=== PATIENT | female | born 2005 | race Asian ===

== ENCOUNTER 2024-07-26 06:31 | Outpatient (REF) | payer OTHER, SELFPAY ==
--- NOTE | ~2024-07-26 | US_ITS ---
EXAMINATION: US PELVIS TRANSABDOMINAL AND TRANSVAGINAL HISTORY: IRREGULAR BLEEDING COMPARISON: There are no prior studies for comparison. TECHNIQUE: Transabdominal real-time 2D [place]-scale ultrasound was performed. The patient declined endovaginal examination. FINDINGS: Uterus: The uterus is normal in size, measuring 6.2 x 3.1 x 3.8 cm. Myometrium has a normal echotexture. No fibroids are identified. Endometrium: The endometrial stripe measures 5 mm in thickness. Right ovary: The right ovary measures 3.2 x 2.3 x 2.4 cm. The right ovary is normal in size and echotexture. Left ovary: The left ovary measures 3.3 x 1.9 x 2.8 cm. The left ovary is normal in size and echotexture. Pelvic fluid: There is a small amount of free fluid in the cul-de-sac. US/US pelvic and transvaginal IMPRESSION: Small amount of free fluid in the cul-de-sac. Otherwise unremarkable pelvic ultrasound. Electronically signed by: Erick Prasad MD 07/27/2024 07:04 AM EDT
== END 2024-07-26 06:32 | disposition home or self-care (01) ==
LOC: HO.UMASIMG 06:31
PROVIDERS: Visit Provider Nurse Practitioner Women's Health
DX: N92.6 Irregular menstruation, unspecified (principal)
CPT/HCPCS: 76830; 76856

== ENCOUNTER → 2024-07-26 15:30 | Outpatient (BNV) | payer OTHER, SELFPAY | PROVIDERS: Visit Provider Radiology Diagnostic Radiology | DX: N92.5 Other specified irregular menstruation (principal) | CPT/HCPCS: 76856 ==